=== PATIENT | male | born 2005 | race Caucasian/White ===

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

== ENCOUNTER 2024-05-04 13:07 | Emergency (ER) | payer OTHER, SELFPAY ==
--- OUTSIDE RECORDS SUMMARY | 2024-05-04 13:09 | XMS_ITS | Clinical Summary ---
Author Organization [facility] Address [place], [place] [address] Care Team Providers Care Plush Brusher Name Role Phone Pcp, No Primary Care Provider Unavailabl e Allergies Active Allergy Reactions Criticality Noted Date Comments Lactose GI Upset,Intolerance-Can't Take 03/19/2020 GI upset cramps can last for days. Medications cholecalciferol 2,000 unit tablet Take 1 tablet by mouth once daily. 0 1 Active venlafaxine (EFFEXOR XR) 75 mg cp24 Extended-Release capsule Take 150 mg by mouth once daily. 1 Active cyanocobalamin/fo lic acid (VITAMIN R08-PDROQ ACID ORAL) Take 1 Tablet by mouth once daily. Methylated formulation - Folate Forte Active ARIPiprazole (ABILIFY) 15 mg tabletIndications :Severe episode of recurrent major depressive disorder, without psychotic features (HC) Take 1 Tablet (15 mg) by mouth at bedtime. Parents keep medication locked for safety 30 Tablet 2 Active cloNIDine HCL (CATAPRES) 0.1 mg tabletIndications :ADHD (attention deficit hyperactivity disorder), combined type Take 1 Tablet (0.1 mg) by mouth at bedtime. Parents keep medication locked for safety 30 Tablet 2 Active divalproex (DEPAKOTE ER) 500 mg Extended-Release tabletIndications :Mood disorder (HC),Aggression Take 2 Tablets (1,000 mg) by mouth at bedtime. Parents keep medication locked for safety 60 Tablet 2 Active cyclobenzaprine (FLEXERIL) 10 mg tabletIndications :Concussion without loss of consciousness, initial encounter Take 1 Tablet (10 mg) by mouth 3 times daily if needed for Muscle Spasm. 20 Tablet 4 Active Active Problems Problem Noted Date Diagnosed Date Mood disorder 04/21/2021 Aggression 04/21/2021 Conduct disorder 04/16/2021 Homozygous for MTHFR gene mutation 05/24/2020 Vitamin D deficiency 03/23/2020 Nicotine dependence 03/23/2020 Suicidal ideation 03/19/2020 Severe episode of recurrent major depressive disorder, without psychotic features 03/19/2020 ADHD (attention deficit hype ractivity disorder), combined type 03/19/2020 Lactose intolerance 05/04/2019 Overview (05/04/2019): Family discovered this by keeping a food journal. Resolved Problems Problem Noted Date Diagnosed Date Resolved Date Acute intractable headache 03/23/2020 0 05/24/2020 Sore throat 03/23/2020 05/24/2020 Myalgia 03/23/2020 05/24/2020 Major depressive disorder, r ecurrent episode, severe 03/19/2020 03/19/2020 Current severe episode of ma [place] depressive disorder without prior episode 06/06/2017 0 Attention deficit disorder w ithout mention of hyperactivity 07/21/2014 03/19/2020 Undiagnosed cardiac murmurs 11/11/2006 12/07/2014 Hydrocele, unspecified 06/15/200603/10 Encounters Date Type Department Care Team Description 05/04/2024 Telephone [facility] [address] [place] [address] Pcp, No Breathing Problem 02/18/2024 1:45 PM [facility] Office Visit [facility] [address] [place] [id number] Anusha Reyna, RUTH Head Pain/problem 02/18/2024 Travel from Last 3 Months Immunizations Name Administration Dates Next Due DTaP 03/12/2006 [id number] (Pediarix) 06/11/2005,04/06/2005,1 DTaP-IPV (Kinrix) 12/19/2009 HIB PRP-OMP (PedvaxHIB) 03/12/2006,04/06/2005, HPV 9 (Gardasil 9) 10/26/2016,04/20/2016 Hepatitis A (Peds) 01/25/2011,12/19/2009 Influenza A (H1N1), Inactiva alphonso (Age >=3 Years) 02/25/2009 Influenza, IIV3 (Age 6-35 mos) 4,03/05/2007,05/17/2006,03/12 Influenza, IIV3 (Age >=3 years) 01/25/2011,01/11,04/12/2006 Influenza, IIV4 04/16/2021, 0,01/02/2018,01/04,04/20/2016 Influenza,LAIV4 Live Intrana marcell (Flumist) 02/04/2012,12/19/2009 MENINGOCOCCAL VACCINE 2 VIAL [id number] (MENVEO) 04/20/2016 MMR 12/19/2009,12/11/2005 Pneumococcal conj 13-Valent (Prevnar 13) 12/19/2009 Pneumococcal conj 7-Valent (Prevnar 7) 1 05/13/2005,06/11/2005,04/06/2005,01/30 Tdap 04/20/2016 Varicella Vaccine 12/19/2009,12/11/2005 Family History Medical History Relation Name Comments Hyperlipidemia Maternal Grandfather Hyperlipidemia Maternal Grandmother Psychiatric illness Mother possible adhd Diabetes Paternal Grandfather Heart Disease No Family History Relation Name Status Comments Maternal Grandfather Maternal Grandmother Mother Paternal Grandfather Social History Tobacco Use Types Packs/Day Years Used Date Smoking Tobacco: Some Days Cigarettes Smokeless Tobacco: Never Tobacco Cessation:Ready to Q uit: Not Asked; Counseling Given: Not Answered Comments:no exposure Alcohol Use Standard Drinks/Week Comments Yes 0 (1 standard drink = 0.6 oz pur e alcohol) occasional PHQ-2 Answer Date Recorded PHQ-2 TOTAL SCORE 5 04/15/2021 Social Connections Answer Date Recorded Frequency of Communication with Friends and Fami ly Not on file 04/07/2021 Alcohol Use Answer Date Recorded How often do you have a drink containing alcohol ? 2 04/15/2021 How many drinks containing a lcohol do you have on a typical day when you are drinking? 1 04/15/2021 How often do you have five or more drinks on one occasion? 1 04/15/2021 Financial Resource Strain Answer Date R ecorded Difficulty of Paying Living Expenses Not on file 04/07/2021 Difficulty of Paying Living Expenses Not on file 04/07/2021 Sex and Gender Information Value Date Recorded Sex Assigned at Not on file Legal Sex Male 7:11 AM [facility] Gender Identity Not on file Sexual Orientation Not on file Obstetrics History Last Filed Vital Signs Vital Sign Reading Time Taken Comments Blood Pressure 122/81 02/18/2024 2:48 PM [facility] Pulse 65 02/18/2024 2:48 PM [facility] Temperature 36.9 C (98.5 F) 02/18/2024 2:48 PM [facility] Respiratory Rate 16 02/18/2024 2:4 8 PM [facility] Oxygen Saturation 100% 02/18/2024 2:48 PM [facility] Inhaled Oxygen Concentration - - Weight 55.9 kg (123 lb 3.2 oz) 02/18/2024 2:48 P M [facility] Height 172.7 cm (5' 8) 01/07/2022 12:2 9 AM CDT Head Circumference 49.5 cm 12/10/2006 12 :12 PM CDT Head Circumference Percentile 72.03% 12:12 PM CDT Growth Chart: [facility] (Boys, 0-3 6 Months) Body Mass Index - - Plan of Treatment Health Maintenance Due Date Last Done Comments Well Child Check for age 3-20 05/04/2020 05/04/2019, 01/02/2018, 04/20/2016, Additional history exists Depression screening for age 12+ 04/08/2022 04/08/2021, 05/24/2020, 08/14/2019, Additional history exists BMI (ht and wt on same day) for age 18+ 2022 Hepatitis C screening for age 18-79 2022 COVID-19 vaccine series ( season) 2023 09/23/2020, 08/27/2020 Influenza for age 9-49 12/08/2023 , 05/04/2019, 01/02/2018, Additional history exists Tetanus booster 04/20/2026 04/20/2016 Pneumococcal series for age 6-49 Aged Out 12/19/2009, 03/12/2006, 06/11/2005, Additional history exists No longer eligible based on patient's age to complete this topic Meningococcal series for age 11-21 Aged Out 04/20/2016 No longer eligible based on patient's age to complete this topic Tdap Completed 04/20/2016 HPV series for age 9-26 Completed 10/26/2016, 04/20 HIV for age 15-65 Completed 04/14/2020 Procedures Procedure Name Priority Date/Time Associated Diagnosis Comments ANTI HIV 1/2 Early AM 04/14/2020 8:07 AM [facility] from Last 3 Months or Most Recently Relevant to Health Maintenance Results * ANTI HIV 1/2 (04/14/2020 8:07 AM [facility]) HIV-1/HIV-2 ANTIBODY Non-Reacti ve Non-Reacti ve 04/14/2020 11:21 AM [facility] Comment:HIV-1 p24 and HIV-1/ HIV-2 Ab not detected. Blood BLOOD SPECIMEN / Unknown Venipuncture / Unknown 04/14/2020 8:07 AM [facility] 04/14/2020 8:40 AM [facility] us Rossana Joe MD SEND OUTS Final Result [facility] [address] [place] [address], [place] from Last 3 Months or Most Recently Relevant to Health Maintenance Additional Health Concerns Infection Onset Date Last Indicated COVID History Comment:Patient had positive COVID test on 03/29/[address] site in [place] and again at [facility] on 04/07/21 . Patient met COVID clearance criteria on 04/09/2021. Patient no longer requires enhanced respiratory precautions. It is not recommended to collect additional COVID-19 tests until 90 days have passed since first positive test. Exception: patient develops new COVID-19 symptoms. 04/10/2021 04/10/2021 Insurance [employer] Advance Directives * Full Code (Latest Code Status on File) Date Activated Date Inactivated Comments 04/15/2021 8:59 PM 04/22/2021 1:30 PM Question Answer Comments Code Status Discussion: Not Discussed * Full Code Date Activated Date Inactivated Comments 03/18/2020 10:46 PM 04/15/2020 4:22 PM Question Answer Comments Code Status Discussion: Not Discussed * Full Code Date Activated Date Inactivated Comments 2004 1:28 PM 2004 4:23 PM Care Teams Plush Brusher Relationship Specialty Start Date End Date Pcp, No . PCP - General 03/02/21
[2024-05-04 13:14] VITALS: BP 148/78; PULSE 97; RESP 18; TEMP 36.6; O2SAT 98; BMI 19.0
--- NOTE | 2024-05-04 13:42 | ED_ITS ---
HPI - General Adult General Time Seen by Provider: 13:37 Date Seen: 05/04/24 Chief complaint: Shortness of Breath/Dyspnea Stated complaint: difficulty breathing/congestion Time Seen by Provider: 05/04/24 13:37 Source: patient Mode of arrival: ambulatory Limitations: no limitations History of Present Illness HPI narrative: This 18-year-old male is coming in with difficulty breathing and shortness of breath. He started with symptoms this morning at 10:00 a.m.. He has been coughing, has felt some congestion, feels like he has coughed some phlegm up. At times he has felt wheezy. States when he awoke, felt like he was breathing through a straw. He has not noted any fevers. He can not tell if he had a sore throat with this or not. No otalgia. He has no history of asthma. His dad is home with flu like illness, high fevers. He states his dad is home with a flu like illness, has high fevers with it but will not go into the doctor. He had a co-worker that just had RSV. Related Data Home Medications ?Medication ?Instructions ?Recorded ?Confirmed levomefolate calcium PO 08/06/23 08/06/23 [L-Methylfolate] multivitamin (Daily Multi-Vitamin 1 tab PO QAM 08/06/23 08/06/23 tablet) Previous Rx's ?Medication ?Instructions ?Recorded oseltamivir 75 mg capsule (Tamiflu) 75 mg PO BID 5 days #10 caps 05/04/24 Allergies Allergy/AdvReac Type Severity Reaction Status Date / Time lactose Allergy Mild Gastrointestinal Verified 05/04/24 13:18 Upset risperidone (From Risperdal) AdvReac Unknown Gynecomasti Verified 05/04/24 13:18 a Review of Systems Narrative: As per HPI. PFS PFS Medical History History of attempted suicide ?Z91.51 - Personal history of suicidal behavior (ICD-10) Neurocognitive disorder ?R41.9 - Unspecified symptoms and signs involving cognitive functions and awareness (ICD-10) History of cannabis abuse ?F12.11 - Cannabis abuse, in remission (ICD-10) Homozygous for MTHFR gene mutation ?Z15.89 - Genetic susceptibility to other disease (ICD-10) Borderline personality disorder ?F60.3 - Borderline personality disorder (ICD-10) History of vitamin D deficiency ?Z86.39 - Personal history of other endocrine, nutritional and metabolic disease (ICD-10) Disruptive mood dysregulation disorder ?F34.81 - Disruptive mood dysregulation disorder (ICD-10) Oppositional defiant disorder ?F91.3 - Oppositional defiant disorder (ICD-10) ADHD (attention deficit hyperactivity disorder), combined type ?F90.2 - Attention-deficit hyperactivity disorder, combined type (ICD-10) Anxiety disorder ?F41.9 - Anxiety disorder, unspecified (ICD-10) Major depressive disorder, recurrent, moderate ?F33.1 - Major depressive disorder, recurrent, moderate (ICD-10) Surgical History Nasolacrimal duct obstruction, left Family History Paternal Grandfather Diabetes Mother ADHD (attention deficit hyperactivity disorder) Maternal Grandmother Bipolar disorder High cholesterol Maternal Grandfather High cholesterol Social History What is your current living situation?: I presently have a place to live Problems where you live: no known problems In the past 12 months, utilities in danger of being shut off: no In past 12 months, lack of transportation kept you from medical appts, meetings, work, or getting things needed for daily living: no In the past 12 mos, have been you worried that your food would run out before you had money to buy more?: never true In the past 12 mos, the food you bought just didn't last and you didn't have money to buy more?: never true Smoking Status: Unknown if ever smoked Non-prescribed substance use: marijuana (any form) How often does anyone, including family, friends and others, physically hurt you : never How often does anyone, including family, friends and others, insult or talk down to you: never How often does anyone, including family, friends and others, threaten you with harm: never How often does anyone, including family, friends and others, scream or curse at you: never Exam Const: Vital Signs, click to edit/add: Vital Signs - 24 hr 05/04/24 13:14 Temperature 97.9 F Pulse Rate [Pulse Oximeter] 97 Respiratory Rate 18 Blood Pressure [Ri ght Upper Arm] 148/78 H Pulse Oximetry 98 Oxygen Delivery Me thod Room Air This 18-year-old male is alert, interactive, no apparent distress. Breathing easily on room air, no stridor, no hoarseness, no tachypnea. Pupils equal round reactive, sclera clear. TMs canals normal, no evidence of infection. Oral mucosa with normal well-hydrated mucosa, no exudates erythema. No tonsillar enlargement, good posterior oral airway. Neck is supple, no adenopathy or masses. Lungs are clear, good air entry, no wheezing or crackles. Do note some flesh-colored story on his back. CV regular rate and rhythm, no murmur, normal S1-S2. Documenting provider has reviewed patient's vital signs: yes Course Course ED Course: This is a slender male, likely underlying viral upper respiratory illness. Will look at a chest x-ray just to ensure no subtle pneumothorax. He is oxygenating well, hemodynamically stable. Nursing staff has done triple viral swab, will also look at the portable chest x-ray and consider infectious etiology, spontaneous pneumothorax. Reevaluation(s) Time of Reevaluation #1: 14:39 Reevaluation #1: Have reviewed with patient he has influenza A. I do not see any concerning change on his chest x-ray. We have discussed influenza come expected course and symptoms of illness. He wanted to know if there medicines for it, did discuss Tamiflu. Reviewed with him that he does not technically meet guidelines or criteria for dispensing this but he still wants to try it. Thus, we will send in Tamiflu as he is certainly within the treatment window. Will provide him a note for work as well. Vital Signs Vital signs: Initial Vital Signs Temperature 97.9 F 05/04/24 13:14 Temperature Source Temporal Artery Scan 05/04/24 13:14 Pulse Rate 97 05/04/24 13:14 Respiratory Rate 18 05/04/24 13:14 Blood Pressure 148/78 H 05/04/24 13:14 Blood Pressure Mean 101 05/04/24 13:14 Blood Pressure Position Sitting 05/04/24 13:14 Pulse Oximetry 98 05/04/24 13:14 Oxygen Delivery Method Room Air 05/04/24 13:14 Vital Signs Temperature 97.9 F 05/04/24 13:14 Pulse Rate 97 05/04/24 13:14 Respiratory Rate 18 05/04/24 13:14 Blood Pressure 148/78 H 05/04/24 13:14 Pulse Oximetry 98 05/04/24 13:14 Oxygen Delivery Method Room Air 05/04/24 13:14 Temperature 97.9 F 05/04/24 13:14 Pulse Rate 97 05/04/24 13:14 Respiratory Rate 18 05/04/24 13:14 Blood Pressure 148/78 H 05/04/24 13:14 Pulse Oximetry 98 05/04/24 13:14 Oxygen Delivery Method Room Air 05/04/24 13:14 Medical Decision Making Lab Data Lab results reviewed: Yes I reviewed the patient's lab results Labs: Lab Results 05/04/24 Range/Units 13:33 SARS-CoV-2 (PCR) Negative SARS-CoV-2 (Negative) Influenza Type A (PCR) POSITIVE PCR FLU A A (Negative) Influenza Type B (PCR) Negative PCR FLU B (Negative) RSV (PCR) Negative PCR RSV (Negative) Imaging Data Chest x-ray: Attestation: I have reviewed the pertinent imaging results. My impression: Chest x-ray my preliminary review without any acute cardiopulmonary pathology. Radiologist's impression: Patient: [facility] Facility:?[facility] Patient ID:?[id number] Site Patient ID:?[id number]. Site :?[id number] Study:?XRay-Chest 1 VIEW PORTABLE-05/04/2024 2:30:37 PM Ordering Physician:Philip Pina Final Report: Indication: COUGH, SOB Technique: AP view of the chest. Comparison: None. Findings: Normal cardiomediastinal silhouette. No focal consolidation, pleural effusions, or visualized pneumothorax. Impression: No acute cardiopulmonary disease. Dictated by Jourdan Santos MD @ 05/04/2024 2:44:30 PM (Electronic Signature) Discharge Plan Discharge Clinical Impression: Influenza A Patient Disposition: Home, Self-Care Condition: Stable Instructions: Influenza (ED) Additional Instructions: Can take Tamiflu as prescribed. Drink plenty of fluids. Can use [id number] cough and cold medicines to help with symptom relief. You are likely going to be sick for a week potentially even with taking the Tamiflu. If you have concerns for increased difficulty breathing, shortness of breath, illness lasting over a week, would recommend re-evaluation. Activity Level: Activity as Tolerated Prescriptions: New oseltamivir [Tamiflu] 75 mg capsule 75 mg PO BID 5 Days Qty: 10 0RF No Action multivitamin [Daily Multi-Vitamin] Tablet 1 tab PO QAM levomefolate calcium [L-Methylfolate] PO Follow Up/Referrals: Quique Salvador MD [Primary Care Provider] - Stand Alone Forms: [employer] Info Instructions
--- OUTSIDE RECORDS SUMMARY | 2024-05-04 13:50 | XMS_ITS | Clinical Summary ---
Author Organization [employer] [facility] Address [place], [place] [address] Care Team Providers Care Dip Unit Operator Name Role Phone Pcp, No Primary Care [...] daily. 1 Active cyanocobalamin/fo lic acid (VITAMIN D53-FUBPI ACID ORAL) Take 1 Tablet by mouth [...] Type Department Care Team Description 05/04/2024 Telephone [facility] [address] [place] [address] Pcp, No Breathing Problem 02/18/2024 1:45 PM PRECISION LENS TECHNICIAN Office Visit [facility] [address] [place] [phone] Anusha Reyna, RUTH Head Pain/problem 02/18/2024 Travel from Last 3 Months Immunizations Name Administration Dates Next Due DTaP 03/12/2006 [id number] (Pediarix) 06/11/2005,04/06/2005,1 DTaP-IPV (Kinrix) 12/19/2009 HIB PRP-OMP [...] on file Legal Sex Male 7:11 AM PRECISION LENS TECHNICIAN Gender Identity Not on file Sexual Orientation Not on file Obstetrics History Last Filed Vital Signs Vital Sign Reading Time Taken Comments Blood Pressure 122/81 02/18/2024 2:48 PM PRECISION LENS TECHNICIAN Pulse 65 02/18/2024 2:48 PM PRECISION LENS TECHNICIAN Temperature 36.9 C (98.5 F) 02/18/2024 2:48 PM PRECISION LENS TECHNICIAN Respiratory Rate 16 02/18/2024 2:4 8 PM PRECISION LENS TECHNICIAN Oxygen Saturation 100% 02/18/2024 2:48 PM PRECISION LENS TECHNICIAN Inhaled Oxygen Concentration - - Weight 55.9 kg (123 lb 3.2 oz) 02/18/2024 2:48 P M PRECISION LENS TECHNICIAN Height 172.7 cm (5' 8) 01/07/2022 12:2 9 AM CDT Head Circumference 49.5 cm 12/10/2006 12 :12 PM CDT Head Circumference Percentile 72.03% 12:12 PM CDT Growth Chart: [facility] (Boys, 0-3 6 Months) Body Mass Index [...] HIV 1/2 Early AM 04/14/2020 8:07 AM PRECISION LENS TECHNICIAN from Last 3 Months or Most Recently Relevant to Health Maintenance Results * ANTI HIV 1/2 (04/14/2020 8:07 AM PRECISION LENS TECHNICIAN) HIV-1/HIV-2 ANTIBODY Non-Reacti ve Non-Reacti ve 04/14/2020 11:21 AM PRECISION LENS TECHNICIAN [facility] Comment:HIV-1 p24 and HIV-1/ HIV-2 Ab not detected. Blood BLOOD SPECIMEN / Unknown Venipuncture / Unknown 04/14/2020 8:07 AM PRECISION LENS TECHNICIAN 04/14/2020 8:40 AM PRECISION LENS TECHNICIAN us Rossana Joe MD SEND OUTS Final Result [facility] [address] [place] [address], [place] from Last 3 Months or Most Recently Relevant to Health Maintenance Additional Health Concerns Infection Onset Date Last Indicated COVID History Comment:Patient had positive COVID test on 03/29/[address] through site in [place] and again at [facility] on 04/07/21 . Patient met COVID clearance [...] 1:28 PM 2004 4:23 PM Care Teams Dip Unit Operator Relationship Specialty Start Date End Date Pcp, No . PCP - General 03/02/21
--- NOTE | 2024-05-04 14:17 | CRLHL7_ITS ---
For Patients: As a result of the Cures Act, medical imaging exams and procedure reports are released immediately into your electronic medical record. You may view this report before your referring provider. If you have questions, please contact your health care provider. Indication: COUGH, SOB Technique: AP view of the chest. Comparison: None. Findings: Normal cardiomediastinal silhouette. No focal consolidation, pleural effusions, or visualized pneumothorax. Impression: No acute cardiopulmonary disease. Dictated by Jourdan Santos MD @ 05/04/2024 2:44:30 PM (Electronically Signed)
[2024-05-04 14:20] LABS: PCR FLU A POSITIVE PCR FLU A (Negative); PCR FLU B Negative PCR FLU B (Negative); PCR RSV Negative PCR RSV (Negative); SARS PCR* Negative SARS-CoV-2 (Negative)
== END 2024-05-04 14:48 | disposition home or self-care (01) ==
PROVIDERS: Emergency Provider Family Medicine; PCP Family Medicine
DX: J09.X2 Influenza due to identified novel influenza A virus with other respiratory manifestations (principal)
CPT/HCPCS: 71045; 87631; 99283; 99284

== ENCOUNTER 2024-05-19 11:22 | Emergency (ER) | payer OTHER, SELFPAY ==
--- OUTSIDE RECORDS SUMMARY | 2024-05-19 11:24 | XMS_ITS | Clinical Summary ---
Author Organization [email or web address] [facility] [facility] Address [place], [place] [address] Care Team Providers Care Mothercraft Nurse Name Role Phone Pcp, No Primary Care [...] daily. 1 Active cyanocobalamin/fo lic acid (VITAMIN F22-VMRGH ACID ORAL) Take 1 Tablet by mouth [...] Type Department Care Team Description 05/04/2024 Telephone [facility] [address] [place] [address] Pcp, No Breathing Problem 02/18/2024 1:45 PM SCHOOL DIRECTOR Office Visit [facility] [address] [place] [phone] Anusha Reyna, RUTH Head Pain/problem 02/18/2024 Travel from Last 3 Months Immunizations Name Administration Dates Next Due DTaP 03/12/2006 [id number] (Pediarix) 06/11/2005,04/06/2005,1 DTaP-IPV (Kinrix) 12/19/2009 HIB PRP-OMP [...] on file Legal Sex Male 7:11 AM SCHOOL DIRECTOR Gender Identity Not on file Sexual Orientation Not on file Obstetrics History Last Filed Vital Signs Vital Sign Reading Time Taken Comments Blood Pressure 122/81 02/18/2024 2:48 PM SCHOOL DIRECTOR Pulse 65 02/18/2024 2:48 PM SCHOOL DIRECTOR Temperature 36.9 C (98.5 F) 02/18/2024 2:48 PM SCHOOL DIRECTOR Respiratory Rate 16 02/18/2024 2:48 PM SCHOOL DIRECTOR Oxygen Saturation 100% 02/18/2024 2:48 PM SCHOOL DIRECTOR Inhaled Oxygen Concentration - - Weight 55.9 kg (123 lb 3.2 oz) 02/18/2024 2:48 P M SCHOOL DIRECTOR Height 172.7 cm (5' 8) 01/07/2022 12:2 9 AM CDT Head Circumference 49.5 cm 12/10/2006 12 :12 PM CDT Head Circumference Percentile 72.03% 12:12 PM CDT Growth Chart: [facility] (Boys, 0-3 6 Months) Body Mass Index - - Plan of Treatment Health Maintenance Due Date Last Done Comments Pneumococcal series for age 6-49 (2 of 2 - PPSV23) 2010 12/19/2009, 03/12/2006, 06/11/2005, Additional history exists Well Child Check for age 3-20 05/04/2020 05/04/2019, 01/02/2018, 04/20/2016, Additional history exists Depression screening for age 12+ 04/08/2022 04/08/2021, 05/24/2020, 08/14/2019, Additional history exists BMI (ht and wt on same day) for age 18+ 2022 Hepatitis C screening for age 18-79 2022 COVID-19 vaccine series (3 - 2024-25 season) 2023 09/23/2020, 08/27/2020 Influenza for age 9-49 12/08/2023 , 05/04/2019, 01/02/2018, Additional history exists Tetanus booster 04/20/2026 04/20/2016 Meningococcal series for age 11-21 Aged Out 04/20/2016 No longer eligible based on patient's age to complete this topic Tdap Completed 04/20/2016 HPV series for age 9-26 Completed 10/26/2016, 04/20 HIV for age 15-65 Completed 04/14/2020 Procedures Procedure Name Priority Date/Time Associated Diagnosis Comments ANTI HIV 1/2 Early AM 04/14/2020 8:07 AM SCHOOL DIRECTOR from Last 3 Months or Most Recently Relevant to Health Maintenance Results * ANTI HIV 1/2 (04/14/2020 8:07 AM SCHOOL DIRECTOR) HIV-1/HIV-2 ANTIBODY Non-Reacti ve Non-Reacti ve 04/14/2020 11:21 AM SCHOOL DIRECTOR [facility] Comment:HIV-1 p24 and HIV-1/ HIV-2 Ab not detected. Blood BLOOD SPECIMEN / Unknown Venipuncture / Unknown 04/14/2020 8:07 AM SCHOOL DIRECTOR 04/14/2020 8:40 AM SCHOOL DIRECTOR us Rossana Joe MD SEND OUTS Final Result [facility] [address] [place] [address], [place] from Last 3 Months or Most Recently Relevant to Health Maintenance Additional Health Concerns Infection Onset Date Last Indicated COVID History Comment:Patient had positive COVID test on 03/29/[address] a [address] through site in [place] and again at [facility] on 04/07/21 . Patient met COVID clearance criteria on 04/09/2021. Patient no longer requires enhanced respiratory precautions. It is not recommended to collect additional COVID-19 tests until 90 days have passed since first positive test. Exception: patient develops new COVID-19 symptoms. 04/10/2021 04/10/2021 Insurance [place] [id number] [employer] Advance Directives * Full Code (Latest [...] 1:28 PM 2004 4:23 PM Care Teams Mothercraft Nurse Relationship Specialty Start Date End Date Pcp, No . PCP - General 03/02/21
[2024-05-19 11:31] VITALS: BP 120/62; PULSE 82; RESP 16; TEMP 37.3; O2SAT 98; BMI 19.0
--- NOTE | 2024-05-19 11:47 | CRLHL7_ITS ---
For Patients: As a result of the Century Cures Act, medical imaging exams and procedure reports are released immediately into your electronic medical record. You may view this report before your referring provider. If you have questions, please contact your health care provider. INDICATION: CHEST PAIN TECHNIQUE: Chest 2 views COMPARISON: 05/04/2024 FINDINGS: Cardiovascular and mediastinum: Heart size and vasculature are normal in caliber and appearance. Lungs and pleural spaces: Lungs are clear. No sign of infiltrate or mass. No sign of pleural effusion. No pneumothorax. Bones and soft tissues: No significant findings. IMPRESSION: No acute findings. Dictated by Quique Duque MD @ 05/19/2024 12:43:59 PM (Electronically Signed)
--- OUTSIDE RECORDS SUMMARY | 2024-05-19 11:56 | XMS_ITS | Clinical Summary ---
Author Organization [employer] [facility] [employer] [facility] Address [place], [place] [address] Care Team Providers Care Command And Control Systems Integrator Name Role Phone Pcp, No Primary Care [...] daily. 1 Active cyanocobalamin/fo lic acid (VITAMIN U62-LDDOU ACID ORAL) Take 1 Tablet by mouth [...] Type Department Care Team Description 05/04/2024 Telephone [facility] [address] [place] [address] Pcp, No Breathing Problem 02/18/2024 1:45 PM SAP BUSINESS OBJECTS DEVELOPER Office Visit [facility] [address] [place] [phone] Anusha Reyna, RUTH Head Pain/problem 02/18/2024 Travel from Last 3 Months Immunizations Name Administration Dates Next Due DTaP 03/12/2006 [id number] (Pediarix) 06/11/2005,04/06/2005,1 DTaP-IPV (Kinrix) 12/19/2009 HIB PRP-OMP [...] on file Legal Sex Male 7:11 AM SAP BUSINESS OBJECTS DEVELOPER Gender Identity Not on file Sexual Orientation Not on file Obstetrics History Last Filed Vital Signs Vital Sign Reading Time Taken Comments Blood Pressure 122/81 02/18/2024 2:48 PM SAP BUSINESS OBJECTS DEVELOPER Pulse 65 02/18/2024 2:48 PM SAP BUSINESS OBJECTS DEVELOPER Temperature 36.9 C (98.5 F) 02/18/2024 2:48 PM SAP BUSINESS OBJECTS DEVELOPER Respiratory Rate 16 02/18/2024 2:48 PM SAP BUSINESS OBJECTS DEVELOPER Oxygen Saturation 100% 02/18/2024 2:48 PM SAP BUSINESS OBJECTS DEVELOPER Inhaled Oxygen Concentration - - Weight 55.9 kg (123 lb 3.2 oz) 02/18/2024 2:48 P M SAP BUSINESS OBJECTS DEVELOPER Height 172.7 cm (5' 8) 01/07/2022 12:2 9 AM CDT Head Circumference 49.5 cm 12/10/2006 12 :12 PM CDT Head Circumference Percentile 72.03% 12:12 PM CDT Growth Chart: [facility] (Boys, 0-3 6 Months) Body Mass Index [...] HIV 1/2 Early AM 04/14/2020 8:07 AM SAP BUSINESS OBJECTS DEVELOPER from Last 3 Months or Most Recently Relevant to Health Maintenance Results * ANTI HIV 1/2 (04/14/2020 8:07 AM SAP BUSINESS OBJECTS DEVELOPER) HIV-1/HIV-2 ANTIBODY Non-Reacti ve Non-Reacti ve 04/14/2020 11:21 AM SAP BUSINESS OBJECTS DEVELOPER [facility] Comment:HIV-1 p24 and HIV-1/ HIV-2 Ab not detected. Blood BLOOD SPECIMEN / Unknown Venipuncture / Unknown 04/14/2020 8:07 AM SAP BUSINESS OBJECTS DEVELOPER 04/14/2020 8:40 AM SAP BUSINESS OBJECTS DEVELOPER us Rossana Joe MD SEND OUTS Final Result [facility] [address] [place] [address], [place] from Last 3 Months or Most Recently Relevant to Health Maintenance Additional Health Concerns Infection Onset Date Last Indicated COVID History Comment:Patient had positive COVID test on 03/29/[address] a [address] through site in [place] and again at [facility] on 04/07/21 . Patient met COVID clearance criteria on 04/09/2021. Patient no longer requires enhanced respiratory precautions. It is not recommended to collect additional COVID-19 tests until 90 days have passed since first positive test. Exception: patient develops new COVID-19 symptoms. 04/10/2021 04/10/2021 Insurance [employer] [place] [id number] [employer] Advance Directives * Full Code (Latest [...] 1:28 PM 2004 4:23 PM Care Teams Command And Control Systems Integrator Relationship Specialty Start Date End Date Pcp, No . PCP - General 03/02/21
--- NOTE | 2024-05-19 12:01 | ED.CHESTPAIN ---
HPI - Chest Pain General Date Seen: 05/19/24 Chief Complaint: Chest Pain Stated Complaint: L side chest/back pain, arm numb Time Seen by Provider: 05/19/24 11:41 Source: patient and other (Girlfriend) Mode of arrival: ambulatory Limitations: no limitations History of Present Illness HPI narrative: This very nice 18-year-old gentleman presents here with his significant other with a history of chest discomfort over the central part of his chest into his left side. There is no radiation to his back neck her shoulders, this came on this morning and maybe a little bit last night. He did not do anything different, then normal, he had approximately 2-3 THC gummies yesterday in 4 shots of alcohol. No previous history of chest pain, he has no history of shortness of breath associated with this, he did not take any remedies at home, and presented here for help, he does tell me that he feels that the anxiety that he gets normally, is ramped up because of the chest discomfort. No family history of coronary artery disease, no history of Marfan's, Lyndsay-Danlos. complaint: chest pain Onset (ago): hour(s) Timing of current episode: episodic Prior episodes: No Onset: during rest and awoke with symptoms Pain location: substernal and left chest Pain radiation: none Severity: mild Quality: heaviness and shooting Relieving factors: nothing Exacerbating factors: nothing Treatment prior to arrival: none Risk Factors Coronary artery disease risk factors: none Thoracic aortic dissection risk factors: none Related Data Home Medications ?Medication ?Instructions ?Recorded ?Confirmed No Known Home Medications 05/19/24 05/19/24 Allergies Allergy/AdvReac Type Severity Reaction Status Date / Time lactose Allergy Mild Gastrointestinal Verified 05/19/24 11:30 Upset risperidone (From Risperdal) AdvReac Unknown Gynecomasti Verified 05/19/24 11:30 a Review of Systems Status of ROS Reports: 10 or more systems reviewed and unremarkable except as noted in History and below [facility] Medical History History of attempted suicide ?Z91.51 - Personal history of suicidal behavior (ICD-10) Neurocognitive disorder ?R41.9 - Unspecified symptoms and signs involving cognitive functions and awareness (ICD-10) History of cannabis abuse ?F12.11 - Cannabis abuse, in remission (ICD-10) Homozygous for MTHFR gene mutation ?Z15.89 - Genetic susceptibility to other disease (ICD-10) Borderline personality disorder ?F60.3 - Borderline personality disorder (ICD-10) History of vitamin D deficiency ?Z86.39 - Personal history of other endocrine, nutritional and metabolic disease (ICD-10) Disruptive mood dysregulation disorder ?F34.81 - Disruptive mood dysregulation disorder (ICD-10) Oppositional defiant disorder ?F91.3 - Oppositional defiant disorder (ICD-10) ADHD (attention deficit hyperactivity disorder), combined type ?F90.2 - Attention-deficit hyperactivity disorder, combined type (ICD-10) Anxiety disorder ?F41.9 - Anxiety disorder, unspecified (ICD-10) Major depressive disorder, recurrent, moderate ?F33.1 - Major depressive disorder, recurrent, moderate (ICD-10) Surgical History Nasolacrimal duct obstruction, left Family History Paternal Grandfather Diabetes Mother ADHD (attention deficit hyperactivity disorder) Maternal Grandmother Bipolar disorder High cholesterol Maternal Grandfather High cholesterol Social History What is your current living situation?: I presently have a place to live Problems where you live: no known problems In the past 12 months, utilities in danger of being shut off: no In past 12 months, lack of transportation kept you from medical appts, meetings, work, or getting things needed for daily living: no In the past 12 mos, have been you worried that your food would run out before you had money to buy more?: never true In the past 12 mos, the food you bought just didn't last and you didn't have money to buy more?: never true Smoking Status: Unknown if ever smoked Non-prescribed substance use: marijuana (any form) How often does anyone, including family, friends and others, physically hurt you: never How often does anyone, including family, friends and others, insult or talk down to you: never How often does anyone, including family, friends and others, threaten you with harm: never How often does anyone, including family, friends and others, scream or curse at you: never Exam Narrative Exam Narrative: On examination in room 7 he is in no apparent distress his pupils equal round reactive to light, alert oriented x3, TMs are normal oropharynx normal neck is supple chest is good air entry bilaterally with no wheezing crackles noted his heart sounds are normal, very thin gentleman, no palpable pain on his chest on palpation percussion, heart sounds are normal no clicks murmurs or gallops, there is no rubs also. Abdomen is soft and scaphoid there is no guarding no organomegaly, negative Echeverria sign bowel sounds are normal, no CVA tenderness moves all extremities independently well with absence of any edema, Const Vital Signs, click to edit/add: Vital Signs - 24 hr 05/19/24 11:31 Temperature 99.2 F Pulse Rate [Pulse Oximeter] 82 Respiratory Rate 16 Blood Pressure [Left Upper Arm] 120/62 Pulse Oximetry 98 Oxygen Delivery Method Room Air Documenting provider has reviewed patient's vital signs: yes Course Course ED Course: Reviewed the test results with the patient there is no evidence of anything acute, he did improve with the GI cocktail I think this is likely esophagitis, and we talked about ways that he may improve the situation. I see no evidence of pulmonary cardiac issue going on here. Vital Signs Vital signs: Initial Vital Signs Temperature 99.2 F 05/19/24 11:31 Temperature Source Temporal Artery Scan 05/19/24 11:31 Pulse Rate 82 05/19/24 11:31 Respiratory Rate 16 05/19/24 11:31 Blood Pressure 120/62 05/19/24 11:31 Blood Pressure Mean 81 05/19/24 11:31 Blood Pressure Position High-Fowlers 05/19/24 11:31 Pulse Oximetry 98 05/19/24 11:31 Oxygen Delivery Method Room Air 05/19/24 11:31 Vital Signs Temperature 99.2 F 05/19/24 11:31 Pulse Rate 82 05/19/24 11:31 Respiratory Rate 16 05/19/24 11:31 Blood Pressure 120/62 05/19/24 11:31 Pulse Oximetry 98 05/19/24 11:31 Oxygen Delivery Method Room Air 05/19/24 11:31 Temperature 99.2 F 05/19/24 11:31 Pulse Rate 82 05/19/24 11:31 Respiratory Rate 16 05/19/24 11:31 Blood Pressure 120/62 05/19/24 11:31 Pulse Oximetry 98 05/19/24 11:31 Oxygen Delivery Method Room Air 05/19/24 11:31 Medications Administered Medications: Discontinued Medications Generic Name Dose Route Start Last Admin Trade Name Gurinderq PRN Reason Stop Dose Admin Sodium Chloride 1,000 mls @ 1,000 mls/hr 05/19/24 12:00 05/19/24 12:56 0.9 % Sodium Chloride 1000 Ml IV 05/19/24 12:59 Infused .Q1H CHARLES Infusion Ketorolac Tromethamine 30 mg 05/19/24 11:47 05/19/24 12:16 Ketorolac 30 Mg/Ml Inj IVP 05/19/24 11:48 30 mg ONCE ONE Administration Lidocaine/Aluminum/Magnesium/Simeth 30 ml 05/19/24 11:47 05/19/24 12:18 Gi Cocktail (Visc Lido/Antacid) 30 Ml PO 05/19/24 11:48 30 ml ONCE ONE Administration MDM - Chest Pain MDM Narrative Medical decision making narrative: During the evaluation of this patient I considered multiple differential diagnosis is. The life-threatening differential diagnosis include coronary disease/AZ, pulmonary embolism, pneumothorax, pneumonia, and aortic dissection. Other differential diagnosis included but were not limited to pericarditis, myocarditis, chest wall pain, GERD, esophageal rupture, rib fracture contusion, pleurisy, as well as other etiologies. Medical Records Data Attestation: I reviewed the patient's medical records. Lab Data Attestation: I reviewed the patient's lab results. Labs: Lab Results 05/19/24 05/19/24 Range/Units 11:48 12:03 WBC 8.50 (4.50-11.00) K/uL RBC 5.12 (4.30-5.90) m/uL Hgb 14.7 (13.5-17.5) gm/dL Hct 42.3 (37.0-53.0) % MCV 83 (80-100) fL MCH 29 (26-34) pg MCHC 35 (32-36) gm/dL RDW Coeff of [place] 12.2 (11.5-15.5) % Plt Count 354 (140-440) K/uL Neut % (Auto) 73.0 H (42.0-72.0) % Lymph % (Auto) 16.8 L (20-44) % [place] % (Auto) 8.1 (0.0-11.0) % Eos % (Auto) 1.1 (0.0-7.0) % Baso % (Auto) 0.6 (0.0-3.0) % Neut # (Auto) 6.20 (1.7-7.0) K/uL Lymph # (Auto) 1.40 (0.90-2.90) K/uL [place] # (Auto) 0.70 (0.00-0.90) K/UL Eos # (Auto) 0.09 (0.00-0.50) K/uL Baso # (Auto) 0.05 (0.00-0.30) K/uL Abs Immat Gran (auto) 0.03 (0.00-0.30) K/uL Imm/Tot Granulo (auto) 0.4 % D-Dimer Quant (PE/DVT) < 0.22 (0.00-0.50) ug/ml Sodium 139 (135-149) mmol/L Potassium 4.1 (3.6-5.1) mmol/L Chloride 104 (96-114) mmol/L Carbon Dioxide 27 (20-32) mmol/L Anion Gap 8 (7-15) mEq/L BUN 16 (5-24) mg/dL Creatinine 0.8 (0.6-1.2) mg/dL Estimated Creat Clear 119.11 Estimated GFR 131 ml/min Glucose 105 (60-115) mg/dL Calcium 9.2 (8.7-10.8) mg/dL Total Bilirubin 0.6 (0.1-1.5) mg/dL Direct Bilirubin 0.1 (0.0-0.5) mg/dL AST 20 (12-35) U/L ALT 21 (4-50) U/L Alkaline Phosphatase 50 L (65-260) U/L Total Protein 7.1 (6.0-8.3) g/dL Albumin 4.7 (3.3-5.0) g/dL Lipase 56 (23-300) U/L POC Troponin I 0.00 L (0.01-0.04) ng/ml Imaging Data Chest x-ray: Attestation: I have reviewed the pertinent imaging results. My impression: Chest x-rays negative Radiologist's impression: [place] [address] Diagnostic Imaging Report Patient: Amol Krishnamurthy MR#: [id number] : 2005 Acct:[id number] Loc: ED Service Date: 05/19/[address]: Ordering Physician: Eduardo Espino M.D. Date of Service: 05/19/24 Procedure(s): XR chest 2V Accession Number(s): [id number] cc: Quique Salvador M.D.; Eduardo Espino M.D.~ For Patients: As a result of the Cures Act, medical imaging exams and procedure reports are released immediately into your electronic medical record. You may view this report before your referring provider. If you have questions, please contact your health care provider. INDICATION: CHEST PAIN TECHNIQUE: Chest 2 views COMPARISON: 05/04/2024 FINDINGS: Cardiovascular and mediastinum: Heart size and vasculature are normal in caliber and appearance. Lungs and pleural spaces: Lungs are clear. No sign of infiltrate or mass. No sign of pleural effusion. No pneumothorax. Bones and soft tissues: No significant findings. IMPRESSION: No acute findings. Dictated by Quique Duque MD @ 05/19/2024 12:43:59 PM (Electronically Signed) ECG Data Attestation: I personally reviewed and interpreted this ECG as follows: ECG interpretation date: 05/19/24 Interpretation: EKG shows normal sinus rhythm, with mild sinus arrhythmia ventricular rate 84 QRS 102, QT and QTC are normal. Discharge Plan Discharge Clinical Impression: Chest pain, Esophagitis Patient Disposition: Home w/ Parent or Adult Condition: Improved Instructions: Chest Pain (DC), Esophagitis (ED) Additional Instructions: Home rest, Prilosec 20 mg once daily for the next 3 weeks, this is a really good treatment and spot [id number]. This is cause primarily by acid, so, avoidance of caffeinated beverages, and carbonation also helps immensely. Lots of water, milk is said to also help this. Alcohol and smoking her also things to avoid. Follow-up with primary care if ongoing signs and symptoms, and consideration of further workup. Note written for today. Prescriptions: No Action No Known Home Medications Follow Up/Referrals: Quique Salvador MD [Primary Care Provider] - Stand Alone Forms: [employer] Info Instructions
[2024-05-19 12:13] LABS: Basophils Absolute Auto 0.05 K/uL (0.00-0.30); Basophils Percent Auto 0.6 % (0.0-3.0); Eosinophils Absolute Auto 0.09 K/uL (0.00-0.50); Eosinophils Percent Auto 1.1 % (0.0-7.0); Hematocrit 42.3 % (37.0-53.0); Hemoglobin* 14.7 gm/dL (13.5-17.5); Immature Granulocytes Abs Auto 0.03 K/uL (0.00-0.30); Immature Granulocytes Pct Auto 0.4 %; Lymphocytes Percent Auto 16.8 % (20-44); Mean Corpuscular HGB Conc 35 gm/dL (32-36); Mean Corpuscular Hemoglobin 29 pg (26-34); Mean Corpuscular Volume 83 fL (80-100); Monocytes Percent Auto 8.1 % (0.0-11.0); Platelet Count* 354 K/uL (140-440); RDW Coefficient of Variation % 12.2 % (11.5-15.5); Red Blood Count 5.12 m/uL (4.30-5.90)
[2024-05-19] MEDS: 0.9 % SODIUM CHLORIDE 1000 ml 1,000 ML IV (12:15)
[2024-05-19] MEDS: KETOROLAC 30 MG/ML inj IVP (12:16)
[2024-05-19] MEDS: GI COCKTAIL (VISC LIDO/ANTACID) 30 ML PO (12:18)
[2024-05-19 12:27] LABS: Albumin* 4.7 g/dL (3.3-5.0)
[2024-05-19 12:28] LABS: Chloride* 104 mmol/L (96-114); Potassium* 4.1 mmol/L (3.6-5.1); Sodium* 139 mmol/L (135-149)
[2024-05-19 12:30] LABS: Anion Gap 8 mEq/L (7-15); Aspartate Amino Transferase* 20 U/L (12-35); Bilirubin Direct* 0.1 mg/dL (0.0-0.5); Bilirubin Total* 0.6 mg/dL (0.1-1.5); Blood Urea Nitrogen* 16 mg/dL (5-24); Carbon Dioxide* 27 mmol/L (20-32); Creatinine* 0.8 mg/dL (0.6-1.2); Est. Creatinine Clearance* 119.11; Estimated Glomerular Filt Rate 131 ml/min; Total Protein* 7.1 g/dL (6.0-8.3)
[2024-05-19 12:31] LABS: Alanine Aminotransferase* 21 U/L (4-50); Alkaline Phosphatase* 50 U/L (65-260); Calcium* 9.2 mg/dL (8.7-10.8); Glucose* 105 mg/dL (60-115); Lipase* 56 U/L (23-300)
[2024-05-19 12:38] LABS: D Dimer Quantitative* < 0.22 ug/ml (0.00-0.50)
[2024-05-19 12:47] LABS: Slide Review Reflex No
[2024-05-19 13:01] VITALS: PULSE 76; RESP 14; O2SAT 96
== END 2024-05-19 13:13 | disposition home or self-care (01) ==
PROVIDERS: Emergency Provider Family Medicine; PCP Family Medicine
DX: R07.9 Chest pain, unspecified (principal); K20.90 Esophagitis, unspecified without bleeding
CPT/HCPCS: 36415; 71046; 80048; 80076; 83690; 84484; 85025; 85379; 93005; 94761; 96374; 99284; 99285; A9270; J1885; J7030

== ENCOUNTER 2024-09-30 12:25 | Outpatient (CLI) | payer OTHER, SELFPAY ==
--- OUTSIDE RECORDS SUMMARY | 2024-10-02 00:13 | XMS_ITS | Clinical Summary ---
Author Organization [employer] [facility] Address [address] [place] [id number] Care Team Providers Care Neuroscientist Name Role Phone Pcp, No Primary Care [...] daily. 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 Gender Identity Not on file Sexual Orientation Not on file Obstetrics History Last Filed Vital Signs Vital Sign Reading Time Taken Comments Blood Pressure 122/81 02/18/2024 2:48 PM HIGH SCHOOL COMPUTER SCIENCE TEACHER Pulse 65 02/18/2024 2:48 PM HIGH SCHOOL COMPUTER SCIENCE TEACHER Temperature 36.9 C (98.5 F) 02/18/2024 2:48 PM HIGH SCHOOL COMPUTER SCIENCE TEACHER Respiratory Rate 16 02/18/2024 2:48 PM HIGH SCHOOL COMPUTER SCIENCE TEACHER Oxygen Saturation 100% 02/18/2024 2:48 PM HIGH SCHOOL COMPUTER SCIENCE TEACHER Inhaled Oxygen Concentration - - Weight 55.9 kg (123 lb 3.2 oz) 02/18/2024 2:48 P M HIGH SCHOOL COMPUTER SCIENCE TEACHER Height 172.7 cm (5' 8) 01/07/2022 12:2 [...] HIV 1/2 Early AM 04/14/2020 8:07 AM HIGH SCHOOL COMPUTER SCIENCE TEACHER from Last 3 Months or Most Recently Relevant to Health Maintenance Results * ANTI HIV 1/2 (04/14/2020 8:07 AM HIGH SCHOOL COMPUTER SCIENCE TEACHER) HIV-1/HIV-2 ANTIBODY Non-Reacti ve Non-Reacti ve 04/14/2020 11:21 AM HIGH SCHOOL COMPUTER SCIENCE TEACHER [facility] Comment:HIV-1 p24 and HIV-1/ HIV-2 Ab not detected. Blood BLOOD SPECIMEN / Unknown Venipuncture / Unknown 04/14/2020 8:07 AM HIGH SCHOOL COMPUTER SCIENCE TEACHER 04/14/2020 8:40 AM HIGH SCHOOL COMPUTER SCIENCE TEACHER us Rossana Joe MD SEND OUTS Final Result [facility] [address] [place] [address], [place] from Last 3 Months or Most Recently Relevant to Health Maintenance Additional Health Concerns Infection Onset Date Last Indicated COVID History Comment:Patient had positive COVID test on 03/29/[address] through site in [place] and again at [facility] on 04/07/21 . Patient met COVID clearance criteria on 04/09/2021. Patient no longer requires enhanced respiratory precautions. It is not recommended to collect additional COVID-19 tests until 90 days have passed since first positive test. Exception: patient develops new COVID-19 symptoms. 04/10/2021 04/10/2021 Insurance [employer] [id number] [employer] Advance Directives * Full Code (Latest [...] 1:28 PM 2004 4:23 PM Care Teams Neuroscientist Relationship Specialty Start Date End Date Pcp, No . PCP - General 03/02/21
== END 2024-09-30 12:26 | disposition home or self-care (01) ==
LOC: AMB 10-01 13:57
PROVIDERS: PCP Family Medicine; Visit Provider Emergency Medicine
DX: R41.82 Altered mental status, unspecified (principal)
CPT/HCPCS: A0425; A0429

== ENCOUNTER 2024-09-30 12:54 | Emergency (ER) | payer OTHER, SELFPAY ==
--- OUTSIDE RECORDS SUMMARY | 2024-09-30 12:57 | XMS_ITS | Clinical Summary ---
Author Organization [employer] [facility] Address [address] [place] [id number] Care Team Providers Care Patient Care Nursing Assistant Name Role Phone Pcp, No Primary Care [...] daily. 1 Active cyanocobalamin/fo lic acid (VITAMIN U82-THAJJ ACID ORAL) Take 1 Tablet by mouth [...] (DEPAKOTE ER) 500 mg Extended-Release tabletIndications :Mood disorder,Aggressi on Take 2 Tablets (1,000 mg) by mouth [...] cardiac murmurs 11/11/2006 12/07/2014 Hydrocele, unspecified 06/15/200603/10 Immunizations Immunization Administration Dates Next Due DTaP 03/12/2006 [id number] (Pediarix) 06/11/2005,04/06/2005,1 DTaP-IPV (Kinrix) 12/19/2009 HIB PRP-OMP [...] on file Legal Sex Male 7:11 AM GROUP THERAPY COUNSELOR Gender Identity Not on file Sexual Orientation Not on file Obstetrics History Last Filed Vital Signs Vital Sign Reading Time Taken Comments Blood Pressure 122/81 02/18/2024 2:48 PM GROUP THERAPY COUNSELOR Pulse 65 02/18/2024 2:48 PM GROUP THERAPY COUNSELOR Temperature 36.9 C (98.5 F) 02/18/2024 2:48 PM GROUP THERAPY COUNSELOR Respiratory Rate 16 02/18/2024 2:48 PM GROUP THERAPY COUNSELOR Oxygen Saturation 100% 02/18/2024 2:48 PM GROUP THERAPY COUNSELOR Inhaled Oxygen Concentration - - Weight 55.9 kg (123 lb 3.2 oz) 02/18/2024 2:48 P M GROUP THERAPY COUNSELOR Height 172.7 cm (5' 8) 01/07/2022 12:2 9 AM CDT Head Circumference 49.5 cm 12/10/2006 12 :12 PM CDT Head Circumference Percentile 72.03% 12:12 PM CDT Growth Chart: CDC (Boys, 0-3 6 Months) Body Mass Index [...] series ( season) 2023 09/23/2020, 08/27/2020 Influenza Vaccine (Season Ended) 2024 04/16/2021, 05/04/2019, 01/02/2018, Additional history exists Tetanus booster 04/20/2026 04/20/2016 Hepatitis B series for 19+ Completed 06/11, 04/06/2005, 01/30/2005 Meningococcal series for age 11-21 Aged Out 04/20/2016 No longer eligible based on patient's age to complete this topic Tdap Completed 04/20/2016 HPV series for age 9-26 Completed 10/26/2016, 04/20 HIV for age 15-65 Completed 04/14/2020 Procedures Procedure Name Priority Date/Time Associated Diagnosis Comments ANTI HIV 1/2 Early AM 04/14/2020 8:07 AM GROUP THERAPY COUNSELOR from Last 3 Months or Most Recently Relevant to Health Maintenance Results * ANTI HIV 1/2 (04/14/2020 8:07 AM GROUP THERAPY COUNSELOR) HIV-1/HIV-2 ANTIBODY Non-Reacti ve Non-Reacti ve 04/14/2020 11:21 AM GROUP THERAPY COUNSELOR [facility] Comment:HIV-1 p24 and HIV-1/ HIV-2 Ab not detected. Blood BLOOD SPECIMEN / Unknown Venipuncture / Unknown 04/14/2020 8:07 AM GROUP THERAPY COUNSELOR 04/14/2020 8:40 AM GROUP THERAPY COUNSELOR us Rossana Joe MD SEND OUTS Final Result [facility] [address] [place] [address], [place] from Last 3 Months or Most Recently Relevant to Health Maintenance Additional Health Concerns Infection Onset Date Last Indicated COVID History Comment:Patient had positive COVID test on 03/29/[address] through site in [place] and again at [facility] on 04/07/21 . Patient met COVID clearance criteria on 04/09/2021. Patient no longer requires enhanced respiratory precautions. It is not recommended to collect additional COVID-19 tests until 90 days have passed since first positive test. Exception: patient develops new COVID-19 symptoms. 04/10/2021 04/10/2021 Insurance [employer] [id number] [employer] Advance Directives * Full Code (Latest [...] 1:28 PM 2004 4:23 PM Care Teams Patient Care Nursing Assistant Relationship Specialty Start Date End Date Pcp, No . PCP - General 03/02/21
[2024-09-30 13:02] VITALS: BP 138/94; PULSE 97; RESP 20; TEMP 37.5; O2SAT 98; BMI 19.0
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
--- NOTE | 2024-09-30 13:47 | ED.NURSE ---
Patient remains under police custody throughout his ED visit. Patient went to CT without issues. Once returned to room patient abrasions, two, on right foot bacitracin and bandages applied.
[2024-09-30] MEDS: NICOTINE 2 MG GUM BUCCAL (14:15)
== END 2024-09-30 14:18 | disposition home or self-care (01) ==
LOC: ED 14:06
PROVIDERS: Emergency Provider Emergency Medicine; PCP Family Medicine
DX: S06.0X0A Concussion without loss of consciousness, initial encounter (principal); Y04.2XXA Assault by strike against or bumped into by another person, initial encounter; S90.512A Abrasion, left ankle, initial encounter
CPT/HCPCS: 70450; 99283